=== PATIENT | male | born 1975 | race Caucasian/White ===

== ENCOUNTER 2021-07-09 08:20 | Emergency (ER) | payer OTHER ==
[~2021-07-09] VITALS: Ht 180.3 cm; Wt 112.0 kg
[2021-07-09 08:26] VITALS: BP 120/76
--- NOTE | 2021-07-09 08:39 | NUR ---
46 y/o male BIB SELF DUE TO HAVING TROUBLE SLEEPING. PER PATIENT HE IS EXPERICING A CHANGE IN HIS SLEEP CYCLE AND "FEELS CONFUSED WHEN HE WAKES UP" Medical History: DM, HTN, HLD NKDA
--- NOTE | 2021-07-09 08:46 | NUR ---
Dr. Tai at bedside evaluating patient.
[2021-07-09] MEDS ORDERED: MELA5SGL PO (08:54)
[2021-07-09 09:12] VITALS: BP 120/76
--- NOTE | 2021-07-09 09:13 | NUR ---
Patient discharged with v/s stable. Written and verbal after care instructions given. Patient alert, oriented and verbalized understanding of instructions. Ambulatory with steady gait. All questions addressed prior to discharge. ID band removed. Patient advised to follow up with PMD. Rx of Melatonin given. Opportunity to ask questions provided and answered.
== END 2021-07-09 09:12 | disposition home or self-care (01) ==
LOC: MED 08:20
DX: G47.9 Sleep disorder, unspecified (principal); Z79.899 Other long term (current) drug therapy
CPT/HCPCS: 99282